=== PATIENT | female | born 1970 | race Caucasian/White ===

== ENCOUNTER → 2019-09-20 | Outpatient (REF) | payer BC | LOC: M LAB REF 18:32 | PROVIDERS: ATTEND Physician Assistant | DX: L30.8 Other specified dermatitis (principal) ==

== ENCOUNTER → 2019-10-26 | Outpatient (REF) | payer BC | LOC: M LAB REF 10:30 | PROVIDERS: ATTEND Specialist | DX: K13.79 Other lesions of oral mucosa (principal) ==

== ENCOUNTER → 2019-11-02 | Outpatient (REF) | payer BC | LOC: M LAB REF 12:02 | PROVIDERS: ATTEND Physician Assistant | DX: K62.0 Anal polyp (principal) ==

== ENCOUNTER → 2020-01-13 | Outpatient (REF) | payer BC ==
[2020-01-13 17:40] LABS: BACTERIA, URINE AUTO 1+ (NEGATIVE); CALCIUM OXALATE CRYSTALS SMALL; MUCUS, URINE SMALL (NEGATIVE); RBC, URINE AUTO 4 /HPF (0-3); SQUAMOUS EPITHELIAL CELL UR AU 0 /HPF (0-6); WBC, URINE AUTO 2 /HPF (0-3)
[2020-01-13 18:07] LABS: COMPLEMENT C3 157 MG/DL (90-180); COMPLEMENT C4 25 MG/DL (10-40)
[2020-01-13 18:08] LABS: TOTAL PROTEIN,RANDOM URINE 21.4 MG/DL (0.0-12.0)
[2020-01-17 17:06] LABS: ANCA-ATYPICAL <1:20 titer (Neg:<1:20); ANTINUCLEAR ANTIBODIES DIRECT Negative (Negative); CYTOPLASMIC NEUTROP AB ANCA-C <1:20 titer (Neg:<1:20); PERINUCLEAR AB ANCA-P <1:20 titer (Neg:<1:20)
== END ==
LOC: M LAB REF 17:01
PROVIDERS: ATTEND Internal Medicine Nephrology
DX: N18.31 Chronic kidney disease, stage 3a (principal); R31.29 Other microscopic hematuria; R80.9 Proteinuria, unspecified